=== PATIENT | male | born 1985 | race African-American/Black ===

== ENCOUNTER 2016-04-11 02:10 | Emergency (ER) | payer OTHER ==
[~2016-04-11] VITALS: Ht 177.8 cm; Wt 72.6 kg
[2016-04-11 02:51] LABS: ABSOLUTE NEUTROPHILS 4.1 thou/uL (1.4-8.2); BASOPHILS 0.5 % (0.0-2.0); EOSINOPHILS 4.6 % (0.0-3.0); HEMATOCRIT 41.4 % (42.0-52.0); HEMOGLOBIN 13.2 gm/dL (14.0-18.0); LYMPHOCYTES 26.9 % (24.0-44.0); MONOCYTES 11.7 % (1.0-8.0); PLATELET COUNT 182 thou/uL (150-400); POLYS 56.3 % (36.0-66.0); RBC 6.01 mil/uL (4.50-6.00); RDW 16.1 % (10.5-14.5); WBC 7.2 thou/uL (4.0-11.0)
[2016-04-11 02:53] LABS: AMP/METHAMP Negative (Negative); BARBITURATES Negative (Negative); BENZODIAZEPINES POSITIVE (Negative); COCAINE Negative (Negative); METHADONE Negative (Negative); OPIATES Negative (Negative); PCP Negative (Negative); THC Negative (Negative)
[2016-04-11 02:55] LABS: CALCIUM 8.6 mg/dL (8.5-10.1); MANUAL DIFF NO; POTASSIUM 3.6 mmol/L (3.5-5.1)
[2016-04-11 03:15] VITALS: BP 120/72
[2016-04-11 04:35] LABS: ANISOCYTOSIS SLIGHT; LARGE PLATELETS SEVERAL; MICROCYTES SLIGHT
== END 2016-04-11 03:17 ==
LOC: ER 02:10
PROVIDERS: Emergency Medicine
DX: F32.9 Major depressive disorder, single episode, unspecified (principal); F12.10 Cannabis abuse, uncomplicated; F10.99 Alcohol use, unspecified with unspecified alcohol-induced disorder